=== PATIENT | female | born 1925 | race Caucasian/White ===

== ENCOUNTER 2016-06-13 09:50 | Emergency (ER) | payer MEDICARE ==
[~2016-06-13] VITALS: Ht 157.5 cm; Wt 48.0 kg
[~2016-06-13 09:50] MED LIST: CALTTAB5 PO; ENAL5TAB PO; ESTR1TAB PO; GLUC1500 PO; LORTA5 PO; OMEG600C2 PO; PROG100C PO; SYNT25TA PO
[2016-06-13 10:08] VITALS: BP 152/72; PULSE 90; RESP 17; TEMP 99.1; O2SAT 95
[2016-06-13] MEDS ORDERED: ESTR1TAB PO (10:20)
[2016-06-13] MEDS ORDERED: PROG100C PO (10:20)
[2016-06-13] MEDS ORDERED: GLUC1CAP16 (10:20)
[2016-06-13] MEDS ORDERED: CALC500C6 CHEW (10:20)
[2016-06-13] MEDS ORDERED: FISH500C PO (10:20)
[2016-06-13] MEDS ORDERED: SYNT25TA PO (10:20)
[2016-06-13] MEDS ORDERED: ENAL5TAB PO (10:20)
--- NOTE | 2016-06-13 10:56 | PD ---
HPI Chief Complaint: ENT Complaint Time Seen by Provider: 10:28 Travel History International Travel<30 days: No Contact w/Intl Traveler<30days: No Traveled to known affect area: No History of Present Illness HPI An 89-year-old woman who presents to the emergency department complaining of sore throat and runny nose cough and losing her voice today. No fevers no chills. Cough is minimal. She otherwise has been feeling well. She is a history of a couple spots on her liver for which she takes injections monthly ongoing for years. She otherwise is pretty healthy. No other complaints. History Past Medical History Narrative Medical Liver cancer Hypertension Tetanus Vaccination: Unknown Menopausal: Yes Social History Alcohol Use: Yes (OCC) Tobacco Use: No Allergies-Medications (Allergen,Severity, Reaction): Coded Allergies: No Known Allergies (Unverified , 06/13/16) Reported Meds & Prescriptions Reported Meds & Active Scripts Active Reported Fish Oil ([place]-3 Fatty Acids) 500 Mg Cap 600 Mg PO DAILY Synthroid (Levothyroxine Sodium) 25 Mcg Tab 25 Mcg PO DAILY Progesterone Micronized 100 Mg Cap 100 Mg PO DAILY Glucosamine Chondroitin (Arbrzqblaod-Mklfofrxkzj-Vfy C-) 1 Cap Cap HS Estradiol 1 Mg Tab 1 Mg PO DAILY Enalapril (Enalapril Maleate) 5 Mg Tab 5 Mg PO DAILY Calcium Carbonate 500 Mg Chew 500 Mg CHEW BID 500 mg calcium carbonate (200 mg elemental calcium) Review of Systems Except as stated in HPI: all other systems reviewed are Neg Physical Exam Narrative GENERAL: Well-appearing 89 year-old woman, no acute distress. SKIN: Warm and dry. HEAD: Atraumatic. Normocephalic. EYES: Pupils equal and round. No scleral icterus. No injection or drainage. ENT: No nasal bleeding or discharge. Mucous membranes pink and moist. TMs normal. Throat normal. NECK: Trachea midline. No JVD. CARDIOVASCULAR: Warm and well perfused. RESPIRATORY: Normal rate and effort. GASTROINTESTINAL: Abdomen soft, non-tender, nondistended. Hepatic and splenic margins not palpable. MUSCULOSKELETAL: No obvious deformities. Data Data Last Documented VS Vital Signs Date Time Temp Pulse Resp B/P Pulse Ox O2 Delivery O2 Flow Rate FiO2 06/13/16 10:08 99.1 90 17 152/72 95 MDM Medical Decision Making Medical Screen Exam Complete: Yes Emergency Medical Condition: Yes Differential Diagnosis URI, laryngitis, bronchitis Narrative Course Medical decision making 89 year-old woman with laryngitis. She also states she hasn't been sleeping. She's been taking cough cold medicine with phenylephrine. Recommend she avoid phenylephrine. Tylenol for pain. Benadryl at night if needed to help sleep. Diagnosis Primary Impression: Laryngitis Additional Instructions: Avoid cough cold medicines with stimulant such as phenylephrine or pseudoephedrine. Take Tylenol as needed for pain. Take 25 mg of Benadryl at night if needed to help sleep. Return to the emergency department for any new or worsening symptoms. Med/Other Pt SpecificInfo: Prescription(s) given Disposition: 01 DISCHARGE HOME Condition: Stable Terry Ryan MD Jun 13, 2016 10:56
[2016-07-31] MEDS ORDERED: ENAL10TA PO (13:42)
[2016-08-13] MEDS ORDERED: SYNT25TA PO (16:41)
== END 2016-06-13 11:03 | disposition home or self-care (01) ==
LOC: PHEFT 09:50
DX: J04.0 Acute laryngitis (principal); I10 Essential (primary) hypertension
CPT/HCPCS: 99283

== ENCOUNTER 2016-11-27 11:32 | Emergency (ER) | payer MEDICARE ==
[~2016-11-27] VITALS: Ht 157.5 cm; Wt 47.0 kg
[~2016-11-27 11:32] MED LIST changes: +CALC500C6 CHEW; -CALTTAB5 PO; +ENAL10TA PO; -ENAL5TAB PO; +FISH500C PO; -GLUC1500 PO; +GLUC1CAP16; -LORTA5 PO; -OMEG600C2 PO
[2016-11-27 11:35] VITALS: BP 214/93; PULSE 89; RESP 18; TEMP 97.4; O2SAT 99
[2016-11-27] MEDS ORDERED: CALC12502 PO (11:50)
[2016-11-27] MEDS ORDERED: ACETAMINOPHEN/HYDROcodone 325 MG/5 MG TAB PO ONE (12:00)
[2016-11-27] MEDS ORDERED: SULFAMETHOXAZOLE-TRIMETHOPRIM DS 800-160 MG TAB PO ONE (12:00)
[2016-11-27] MEDS ORDERED: CEPHALEXIN MONOHYDRATE 500 MG CAP PO ONE (12:00)
[2016-11-27] MEDS ORDERED: TETANUS/DIPHTHERIA TOXOID ADULT 0.5 ML VIAL IM ONE (12:00)
[2016-11-27] MEDS ORDERED: BACT800T5 PO (12:11)
[2016-11-27] MEDS ORDERED: CEPH-460 PO (12:11)
--- NOTE | 2016-11-27 12:12 | PD ---
HPI . Skin infection Chief Complaint: Injury Time Seen by Provider: 11:51 Travel History International Travel<30 days: No Contact w/Intl Traveler<30days: No Traveled to known affect area: No History of Present Illness HPI This patient presents concerned that she has developed a skin infection. She states that she was shopping for days ago when a can inadvertently fell and landed on her right great toe. She has now developed a blister and some redness. She denies fever. She states she has very little pain. PFSH Past Medical History Cancer: Yes (Liver) Cardiovascular Problems: Yes Diminished Hearing: No Endocrine: Yes (HYPOTHYROIDISM) Gastrointestinal Disorders: No Genitourinary: No Hypertension: Yes Immune Disorder: No Implanted Vascular Access Dvce: No Musculoskeletal: No Neurologic: No Reproductive: No Respiratory: No Thyroid Disease: Yes Tetanus Vaccination: Unknown Influenza Vaccination: Yes ?: Not Menopausal: Yes Past Surgical History Appendectomy: Yes Cholecystectomy: Yes Gynecologic Surgery: Yes (R BREAST LUMPECTOMY) Tonsillectomy: Yes Other Surgery: Yes (RIGHT BREAST LUMPECTOMY) Social History Alcohol Use: Yes (OCC) Tobacco Use: No Substance Use: No Allergies-Medications (Allergen,Severity, Reaction): Coded Allergies: No Known Allergies (Unverified , 07/31/16) Reported Meds & Prescriptions Reported Meds & Active Scripts Active Synthroid (Levothyroxine Sodium) 25 Mcg Tab 25 Mcg PO DAILY Reported Calcium Carbonate 500 Mg Calcium (1250 Mg) Tab 1,250 Mg PO DAILY 1,250 mg calcium carbonate (500 mg elemental calcium) Enalapril (Enalapril Maleate) 10 Mg Tab 10 Mg PO BID Fish Oil ([place]-3 Fatty Acids) 500 Mg Cap 600 Mg PO DAILY Progesterone Micronized 100 Mg Cap 100 Mg PO DAILY Glucosamine Chondroitin (Xhxvfixebfs-Dsfshcojjak-Pli C-) 1 Cap Cap HS Estradiol 1 Mg Tab 1 Mg PO DAILY Review of Systems Except as stated in HPI: all other systems reviewed are Neg General / Constitutional: No: Fever, Chills Skin: Positive Change in Pigmentation Physical Exam Narrative GENERAL: Patient is awake and alert and fully oriented. SKIN: The skin of her right great toe is erythematous and warm. The erythema is confined to the toe. There is a blister on the lateral aspect of the base of the toe. HEAD: Normocephalic/atraumatic. EYES: Extraocular movements are intact. NECK: Full range of motion with no apparent pain. RESPIRATORY: Nonlabored respirations. MUSCULOSKELETAL: No deformity or significant tenderness to palpation of the right great toe. NEUROLOGICAL: No lateralizing signs. PSYCHIATRIC: Appropriate mood and affect. Data Data Last Documented VS Vital Signs Date Time Temp Pulse Resp B/P (MAP) Pulse Ox O2 Delivery O2 Flow Rate FiO2 11/27/16 11:35 97.4 89 18 214/93 (133) 99 Orders Orders Cephalexin (Keflex) (11/27/16 12:00) Sulfamet-Trimeth Ds 800-160 Mg (Bactrim (11/27/16 12:00) Acetamin-Hydrocod 325-5 Mg ([place] 5-325 (11/27/16 12:00) Tetanus/Diphtheria Tox Adult (Tetanus/Di (11/27/16 12:00) MDM Medical Decision Making Medical Screen Exam Complete: Yes Emergency Medical Condition: Yes Differential Diagnosis My differential diagnosis includes but is not limited to localized wound infection, cellulitis, abscess Narrative Course This patient presents with redness and swelling of her right great toe. Her exam is compatible with cellulitis. She does not have any stomach symptoms such as fever or nausea. She'll be treated with Keflex and Bactrim. Diagnosis Primary Impression: Cellulitis Qualified Codes: L03.031 - Cellulitis of right toe Patient Instructions: Cellulitis (DC), General Instructions Med/Other Pt SpecificInfo: Prescription(s) given Scripts Cephalexin (Keflex) 500 Mg Cap 500 MG PO Q8H for Infection, #30 CAP 0 Refills Prov: Sherry Torrez MD 11/27/16 Sulfamethoxazole-Trimethoprim (Bactrim DS) 800-160 Mg Tab 1 TAB PO BID for Infection, #20 TAB 0 Refills Prov: Sherry Torrez MD 11/27/16 Disposition: 01 DISCHARGE HOME Condition: Stable Sherry Trorez MD Nov 27, 2016 12:11
== END 2016-11-27 12:36 | disposition home or self-care (01) ==
LOC: PHED 11:32
DX: L03.031 Cellulitis of right toe (principal); E03.9 Hypothyroidism, unspecified; I10 Essential (primary) hypertension; Y99.8 Other external cause status; W20.8XXA Other cause of strike by thrown, projected or falling object, initial encounter; Y92.512 Supermarket, store or market as the place of occurrence of the external cause; Z23 Encounter for immunization
CPT/HCPCS: 90471; 90714